=== PATIENT | male | born 1980 | race Caucasian/White ===

== ENCOUNTER 2019-01-23 14:23 | Emergency (ER) | payer SELFPAY, OTHER ==
[2019-01-23] MEDS: LIDOCAINE 1% (MDV) 20 ML INJ SC (15:10)
[2019-01-23] MEDS: ACETAMINOPHEN 500 MG TAB PO (15:20)
[2019-01-23] MEDS: DIPHTH/TET/ACEL PERTUSS (ADULT) 0.5 ML VIAL IM* (15:21)
== END 2019-01-23 16:27 | disposition home or self-care (01) ==
LOC: FTE 16:27
DX: S01.01XA Laceration without foreign body of scalp, initial encounter (principal); W20.8XXA Other cause of strike by thrown, projected or falling object, initial encounter; Y92.9 Unspecified place or not applicable; Z23 Encounter for immunization
CPT/HCPCS: 12002; 70450; 72125; 90471; 90715; 99284-25